=== PATIENT | female | born 1945 | race Caucasian/White ===

== ENCOUNTER 2017-06-13 09:29 | Inpatient (IN) | payer OTHER, BC ==
[2017-06-12 08:32] VITALS: BMI 34.2
[2017-06-13] MEDS ORDERED: ceFAZolin SODIUM 1 GM VIAL ONE ×2 (09:52→12:25)
[2017-06-13] MEDS ORDERED: MIDAZOLAM HCL 2 MG/2 ML SINGLE DOSE VIAL ONE (11:43)
[2017-06-13] MEDS ORDERED: ROCURONIUM BROMIDE 50 MG/5 ML VIAL ONE ×3 (11:44→13:47)
[2017-06-13] MEDS ORDERED: fentaNYL CITRATE 250 MCG/5 ML VIAL ONE (11:44)
[2017-06-13] MEDS ORDERED: PROPOFOL 20 ML ONE (11:44)
[2017-06-13] MEDS ORDERED: ceFAZolin SODIUM 1 GM VIAL IVPB ONE (12:18)
[2017-06-13] MEDS ORDERED: LIDOCAINE 1%/EPI 1:100000 (20 ML MULTI DOSE VIAL) ONE (12:25)
[2017-06-13] MEDS ORDERED: BUPIVACAINE HCL/PF 0.5% (5MG/ML) 10 ML VIAL ONE (12:26)
--- NOTE | 2017-06-13 12:40 | HP ---
DATE OF ADMISSION: 06/13/2017 BRIEF HISTORY: This is a 71-year-old female with a 10- to 15-year history of having a large ventral hernia. Over this time course, the hernia has gotten larger. Now she has discomfort in this area and wishes to have it repaired. Please refer to my initial H and P dictated on March 20, 2017 for complete details. This is a brief dictation due to the 30-day rule. PAST MEDICAL HISTORY: Significant for asthma, hypertension and pre-diabetes. PAST SURGICAL HISTORY: Right and left breast surgery. ALLERGIES: None. SOCIAL HISTORY: The patient does not smoke or drink. MEDICATIONS: Lipitor, Losartan, HCTZ, amlodipine, Advair. PHYSICAL EXAMINATION: Abdomen: Obese, soft, nontender, nondistended. She has a large, chronically incarcerated ventral hernia noted in the midline. The hernia is larger on the left side, left inferior. The hernia is soft and there are no overlying skin changes other than being mildly thin. IMPRESSION/PLAN: Chronically incarcerated large ventral hernia. Due to the size of the hernia and her body habitus, she will require repair of this with a component separation. The indications, alternatives and complications were discussed. Questions were answered. VIPUL LOMAS M.D. [id number] cc: JESUS GROVER MD
[2017-06-13] MEDS ORDERED: oxyCODONE HCL 5 MG TABLET PO PRN (13:07)
[2017-06-13] MEDS ORDERED: ACETAMINOPHEN 325 MG TABLET (FP) PO PRN (15:03)
[2017-06-13] MEDS ORDERED: GLYCOPYRROLATE 0.2 MG/1 ML VIAL ONE (15:18)
[2017-06-13] MEDS ORDERED: NEOSTIGMINE METHYLSULFATE 0.5 MG/ML - 10 ML MDV ONE (15:18)
--- NOTE | 2017-06-13 16:06 | OP ---
Operative Note - Note: Operative Date: 06/13/17 Pre-Operative Diagnosis: Large ventral complex hernia Operation: Abdominoplasty in conjunction with hernia repair Post-Operative Diagnosis: Same as Pre-op Surgeon: Broderick Brooks Anesthesia: General Estimated Blood Loss (mls): 100 Drains & Tubes with Location: 2 19 jake Operative Report Dictated: Yes
[2017-06-13] MEDS ORDERED: FAMOTIDINE 20 MG/50 ML IVPB 20 MG/50 ML MG IVPB ONE (16:13)
[2017-06-13] MEDS ORDERED: ACETAMINOPHEN INJECTION 100 ML IVPB ONE (16:13)
[2017-06-13] MEDS ORDERED: ACETAMINOPHEN 1000 MG/100 ML VIAL (NON FORMULARY) IVPB ONE ×2 (16:39→18:00)
[2017-06-13] MEDS ORDERED: ALBUTEROL SO4 0.083% IH SOL 2.5 MG/3 ML VIAL.NEB. NEB ONE (18:00)
--- NOTE | 2017-06-13 18:36 | OP ---
DATE OF OPERATION: 06/13/2017 SURGEON: Raghavendra Brooks M.D. PREOPERATIVE DIAGNOSIS: Abdominoplasty in conjunction with complex central hernia repair, by Carlo Jones M.D. POSTOPERATIVE DIAGNOSIS: Abdominoplasty in conjunction with complex central hernia repair, by Carlo Jones M.D. OPERATIVE INDICATION: Patient is a 71-year-old white female who was brought to the operating room by Dr. Carlo Jones for complex abdominal hernia repair which required exposure and panniculectomy as well as abdominoplasty. The risks and benefits, surgical risks and nonsurgical alternatives, as well as material complications of the procedure for were described in detail on multiple occasions preoperatively and again today in the holding area, where she was marked in the standing position for outline of a large elliptical excision of lower abdominal tissue. The patient was explained that the umbilicus was in the center portion of the hernia, which was complex, and she may lose the viability of the umbilicus postoperatively because of the thin skin over the herniation and repair. OPERATIVE PROCEDURE IN DETAIL: The patient was taken to the operating room by Dr. Jones. I began the procedure with Dr. Jones as the assistant professor of spanish by prepping and draping the patient in usual fashion with Chloraprep solution from the xiphoid down to the table on both sides and down to the pubis. A Dasilva catheter was inserted in the usual fashion. Venodyne boots were placed. Both arms were extended and padded. At this point, after 1% local lidocaine anesthesia with 1:100,000 epinephrine was injected into the lower abdominal incision, incision was made with number 10 scalpel down through skin and subcutaneous tissue, down to underlying fascia. The tissue was then raised off the fascia superiorly extending up to the mid portion of the hernia, which was seen in the periumbilical region extending above and below and on both sides of the umbilicus. At this point, Dr. Jones took over dissection and dissected the hernia ring and umbilicus. Dissection was then carried superiorly to the costal margins superiorly and up to the xiphoid in the midline. At this point the hemostasis was meticulously obtained throughout, and the patient was turned over to Dr. Jones, where I assisted him doing the complex substantial hernia repair. This will be dictated under separate cover. Upon completion of the hernia, the rectus fascia was imbricated using number 1 V-Loc suture in a running fashion imbricating the repair in and upon itself and tightened the abdominal wall in the midline from the xiphoid down to the area of the neoumbilicus and totally down to the pubis. This was carried down 2 separate layers and showed good tightening. Lateral tightening of the abdominal wall was then carried out using running 2-0 Vicryl sutures in interrupted fashion, bringing the lateral portions of the widened abdominal wall together. At this point the skin and subcutaneous tissue was brought down to its new anatomic position after excising the large block of tissue on the lower abdomen, this weighed approximately 3.2 pounds. Good viability of the skin was seen at this point. The patient was placed into a semi-Keene sitting position, and the abdominal wall was brought down into its new position. The first layer repaired with Lilian fascia with the 0 V-Loc suture in a running fashion on both sides of the umbilicus in separate fashion, and then across midline to lock the suture. A 2nd layer with 3-0 PDS suture was carried out in deep dermis, and a subcuticular suture with 3-0 V-Loc suture was carried out on the skin. A new umbilicus was created in its new position because of the inability of viability of the skin and umbilicus previously, there were no attachments to the fascia. At this point a floor flap technique was carried out, making an X in the midline and excising down through skin to subcutaneous tissue. Four flaps were then tacked to the fascia inferiorly, and then interrupted nylon sutures were placed in order to create the neoumbilicus. All wounds were dressed thoroughly. Two 19-Phill drains were brought out through separate stab wounds bilaterally . The skin was approximated with a dressing using the Prineo dressings, and the umbilicus was taped in position using the Steri-Strips. Fluff dressings and a binder was placed onto the patient, she tolerated the procedure well, she was awakened, extubated, and transferred to the recovery room in satisfactory condition. RAGHAVENDRA BROOKS M.D. [id number]
[2017-06-13] MEDS: morphine SULFATE 4 MG/ML VIAL IVPB PRN (21:34)
[2017-06-13] MEDS ORDERED: ATORVASTATIN CA 10 MG TABLET (FP) PO SCH (22:00)
[2017-06-13] MEDS ORDERED: CALCIUM CARBONATE PO SCH (22:00)
[2017-06-13] MEDS ORDERED: amLODIPine BESYLATE 5 MG TABLET (FP) PO SCH (22:00)
[2017-06-13] MEDS ORDERED: ANASTROZOLE 1 MG TABLET PO SCH (22:00)
[2017-06-13] MEDS: D5-1/2NS+20 MEQ KCL - 20 MEQ/1,000 ML INFUS.BAG IV SCH (23:02)
--- NOTE | 2017-06-14 00:20 | OP ---
DATE OF OPERATION: 06/13/2017 PREOPERATIVE DIAGNOSIS: Complex chronically incarcerated ventral hernia. POSTOPERATIVE DIAGNOSIS: Complex chronically incarcerated ventral hernia. PROCEDURE: Bilateral component separation with concomitant repair of complex chronically incarcerated ventral hernia with mesh, partial omentectomy. SURGEON: Carlo Jones M.D. SUPERVISOR JOINERS: Malcolm Henderson M.D. ANESTHESIOLOGIST: Darleen Krueger M.D. ANESTHESIA: General. ESTIMATED BLOOD LOSS: Minimal. SPECIMEN: Portion of omentum and hernia sac. INDICATION FOR PROCEDURE: This is a 71-year-old female who is morbidly obese. She has had a very longstanding history of having a chronically incarcerated ventral hernia, and now she has pain in the area in which she had this operatively repaired. DESCRIPTION OF PROCEDURE: Patient is identified, and appropriately positioned on operating room table. After placement on general anesthesia the abdomen was prepped and draped in the usual sterile fashion with Chloraprep. Dr. Brooks was doing a concomitant abdominoplasty and therefore provided the exposure; please refer to his dictation for abdominoplasty and exposure. I assisted Dr. Brooks with the abdominoplasty with the flaps. Once the flaps were raised, I then focused the attention on performing the hernia repair with a component separation. The hernia sac was identified, divided sharply, and entering the sac it was clear she had a slider, portions of omentum and bowel were adherent to the sac. The bowel was off the sac. The omentum was serially clamped, divided, and tied, and handed off along with a portion of the sac as partial omentectomy and sac. Given the general defect this patient has as well as her morbid obesity, this could not be closed primarily with a tension free repair, and therefore she required mesh as well as a component separation to place this mesh in a retrorectus location. The right posterior rectus space identified by dividing the right posterior sheath. This space was developed laterally with blunt dissection, the lateral junction at the rectus transversus and the obliques. The myofascial separation was performed with cautery. The myofascial separation was taken approximately 4 to 5 inches above the actual defect and 4 to 5 inches below the actual defect down to the level of the pubis. The myofascial separation allowed freeing of the transversus medially and allowing a large piece of mesh to be placed. Once the myofascial separation on the patient's right was completed, a similar approach on the left was done. The left posterior rectus fascia was divided sharply, the space developed bluntly and taken out laterally. At the lateral junction again the perforating vessels identified, the fascia just medial to the perforating vessels was scored and allowed division of the transversus from the rectus and obliques and transversus. The transversus was now brought medially, and the space laterally was in this was created bluntly down to the level of the anterior iliac spines into the ribcage. The posterior sheath was then reapproximated (transversus) with a 2-0 V-Loc suture. The defect then subsequently measured, and a large 30 x 30 Versatex and an 18 x 22 piece of Petr Bio were used for the operative repair. The 2 pieces of mesh were sewn together in the hybrid fashion with interrupted 3-0 Vicryl suture. The Petr Bio was placed on the transversus side, and the Versatex on the rectus side. The mesh placed into the retrorectus space and then anchored with a multitude of Absorbatack sutures. The wound irrigated, the mesh irrigated, and operative field noted to be hemostatic. The fascia in the midline was then reapproximated with a running number 1 PDS suture. At this point, Dr. Brooks then subsequently continued with the tightening of the diastasis and position of the lower abdominal flap for the abdominoplasty. At the conclusion of my portion of the operation, sponge counts were correct. ATTESTATION: Brief operative note handwritten on the preprinted form. [facility] will be queried prior to giving any narcotics. Bebe GOODRICH [id number] cc: Bebe Laughlin
[2017-06-14] MEDS: morphine SULFATE 4 MG/ML VIAL IVPB PRN ×3 (02:18→09:56)
[2017-06-14] MEDS: D5-1/2NS+20 MEQ KCL - 20 MEQ/1,000 ML INFUS.BAG IV SCH (02:36)
[2017-06-14] MEDS ORDERED: PANTOPRAZOLE SODIUM 40 MG VIAL IVPUSH SCH (10:00)
[2017-06-14] MEDS ORDERED: ENOXAPARIN NA (PORCINE) 40 MG/0.4 ML DISP.SYRIN SQ SCH (10:00)
--- NOTE | 2017-06-14 12:38 | DS ---
DATE OF ADMISSION: 06/13/2017 DATE OF DISCHARGE: 06/14/2017 ADMITTING DIAGNOSIS: Complex ventral wall hernia. DISCHARGE DIAGNOSIS: Complex ventral wall hernia. BRIEF HISTORY: A 71-year-old female presented to [facility] for repair of an abdominal wall hernia. This was done by Dr. Carlo Jones utilizing mesh as well as component separation and myofascial release. Please reference his operative report from June 13. She also underwent an abdominoplasty by Dr. Inocencio Brooks. Please reference his operative note for details. She is being discharged home today, June 14, tolerating diet, ambulating, and voiding. She will go home with her Arnold-Persaud drains in place. She will follow with Dr. Brooks as far as management of drain removal and staple removal. She will follow with Dr. Carlo Jones at approximately 2 weeks' time for a postoperative check. She will only sponge bathe until her drains are removed per Dr. Brooks's instructions. She will not drive. She will not lift anything more than 20 pounds. She is on a regular diet. She will resume all of her usual home medications. in addition, she will have a new prescription for Percocet which she will take as needed for pain. DO IGNACIO [id number]
--- NOTE | 2017-06-14 12:43 | PN ---
Progress Note (short form) - Note Progress Note: Anesthesia postop note 71 y/o F s/p GA for ventral hernia repair and abdominoplasty POD#1, vss, aaox3, some abdominal discomfort, ambulating. No anesthesia complications.
[2017-06-14] MEDS ORDERED: IBUPROFEN 800 MG/8 ML IJ IVPB ONE (12:45)
[2017-06-14 14:30] VITALS: BP 145/69; PULSE 88; TEMP 99.1
--- NOTE | 2017-06-15 16:56 | PATH ---
Surgical Pathology Report Patient Name: OCTAVIO KAN [facility]. Rec. #: [id number] /Age/Gender: 1945 (Age: 71) / F Account: [id number] Location: [address] [place] [address] Taken: 06/13/2017 Received: 06/14/2017 Reported: 06/15/2017 Physicians: Broderick Jones Specimen(s) Received A: PORTION OF OMENTUM WITH HERNIA SAC B: ABNORMAL SKIN AND TISSUE Clinical History Complex ventral hernia Final Diagnosis A. HERNIA SAC, PORTION OF OMENTUM, VENTRAL HERNIA REPAIR: MESOTHELIAL LINED FIBROMEMBRANOUS AND FIBROADIPOSE TISSUE CONSISTENT WITH HERNIA SAC AND CONTENTS. B. ABDOMINAL SKIN AND TISSUE, EXCISION: UNREMARKABLE SKIN AND MATURE ADIPOSE TISSUE. Electronically Signed Ginny Barba M.D. Gross Description A. Received in formalin labeled "portion of omentum with hernia sac," is 11.0 x 11.0 x 4.5 cm portion of yellow, lobulated adipose tissue which is partially surfaced by carter-millard fibromembranous tissue, consistent with a hernia sac. Associate Account Manager sections are submitted in one cassette. B. Received in formalin labeled "abdominal skin and tissue," is a 1422 g, 37.0 x 15.0 x 4.0 cm portion of carter, unremarkable skin with underlying yellow, lobulated adipose tissue. No discrete lesions are identified. A inbound sales representative section is submitted in one cassette. /06/14/2017 saudi/06/14/2017
--- NOTE | 2017-06-21 14:28 | HP ---
DATE OF ADMISSION: 06/13/2017 DATE OF DICTATION: 03/20/2017 REASON FOR ADMISSION: Chronically incarcerated, complex ventral hernia. BRIEF HISTORY: This is a 71-year-old female with a 10-15 year history of having a known chronically incarcerated ventral hernia. Over this time course, the hernia has gotten much larger, and now, she has bouts of pain at times. Patient states she would be fine, and there are times when the hernia becomes very hard and she has sharp pain in that area. This would then resolve within a day or so. During the episodes of pain, she feels bloated. She has had no nausea or vomiting. PAST MEDICAL HISTORY: Significant for asthma. She has a history of hypertension, hypercholesterolemia, prediabetes. She has arthritic changes, cataract, and a history of breast cancer status post mastectomy and chemotherapy. PAST SURGICAL HISTORY: Right mastectomy, left breast surgery. MEDICATIONS: Lipitor, losartan/hydrochlorothiazide 100/25 one tablet daily, omeprazole, amitriptyline 5 mg daily, and Advair on a p.r.n. basis. ALLERGIES: None. 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 She does not smoke or drink. PHYSICAL EXAMINATION: Abdomen: The abdomen is obese, soft, nontender, nondistended. She has a chronically incarcerated ventral hernia noted in the midline. The hernia is soft. The skin overlying the hernia is mildly thin, consistent with chronic ischemia. She also has a mild midline diastasis. The remainder of the abdominal examination is unremarkable. The defects of the hernia are not truly appreciated due to its chronically incarcerated nature. IMPRESSION/PLAN: Chronically incarcerated ventral hernia. This is a 71-year-old female becoming more symptomatic from her hernia. At this point, I would recommend an open repair of this hernia (we discussed the pros and cons of various surgical approaches including laparoscopic and robotic and various mesh used as well as placement of mesh). Patient also at the end of her consultation mentioned that she would consider having an abdominoplasty concomitantly, and therefore, patient will be referred to Plastic Surgery for evaluation, consideration of concomitant abdominoplasty. Tentatively, she will be scheduled for an open hernia repair with bilateral component separation as needed, and the hernia repair will be performed using mesh. The indications, alternatives, and complications of the procedure discussed at length. , /[id number] cc: Chris Craig MD
== END 2017-06-14 16:42 | disposition home or self-care (01) | DRG 355 ==
LOC: JASUSAT 09:29 → JSAMEDAYSX 13:07 → J6S 20:12
PROVIDERS: ADMIT Surgery; ATTEND Surgery
PROC: 0JN80ZZ Release Abdomen Subcutaneous Tissue and Fascia, Open Approach (ICD-10-PCS; 2017-06-13)
PROC: 0WUF0JZ Supplement Abdominal Wall with Synthetic Substitute, Open Approach (ICD-10-PCS; principal; 2017-06-13 11:00)
PROC: 0DBU0ZZ Excision of Omentum, Open Approach (ICD-10-PCS; 2017-06-13 11:00)
DX: K43.6 Other and unspecified ventral hernia with obstruction, without gangrene (principal); J45.909 Unspecified asthma, uncomplicated; I10 Essential (primary) hypertension; R73.03 Prediabetes; E66.8 Other obesity; Z68.34 Body mass index [BMI] 34.0-34.9, adult
CPT/HCPCS: 71045-TC-FY; 88302-TC; 88304-TC; 94010; 94760; 97116-GP; 97161-GP; J0131